=== PATIENT | male | born 1995 | race African-American/Black ===

== ENCOUNTER 2020-01-20 22:26 | Emergency (ER) | payer BC ==
[~2020-01-20] VITALS: Ht 193 cm; Wt 113.4 kg
[2020-01-21 01:03] VITALS: BP 106/67
== END 2020-01-21 01:03 | disposition home or self-care (01) ==
LOC: ER 22:26
DX: J02.9 Acute pharyngitis, unspecified (principal); R05 Cough; F12.90 Cannabis use, unspecified, uncomplicated

== ENCOUNTER 2020-01-23 11:16 | Emergency (ER) | payer BC ==
[~2020-01-23] VITALS: Ht 193 cm; Wt 113.4 kg
[2020-01-23] MEDS ORDERED: ONDANSETRON HCL4 M2 PO (11:49)
[2020-01-23] MEDS ORDERED: PROMETH-CODEIN 65 ML PO (11:49)
== END 2020-01-23 12:02 | disposition home or self-care (01) ==
LOC: ER 11:16
DX: R50.9 Fever, unspecified (principal); R05 Cough; R11.2 Nausea with vomiting, unspecified; Z20.828 Contact with and (suspected) exposure to other viral communicable diseases

== ENCOUNTER 2020-03-14 19:45 | Emergency (ER) | payer BC ==
[~2020-03-14] VITALS: Ht 193 cm; Wt 117.9 kg
[~2020-03-14 19:45] MED LIST: ONDANSETRON HCL4 M2 PO; PROMETH-CODEIN 65 ML PO
[2020-03-14 20:49] LABS: ABSOLUTE NEUTROPHILS 1.5 thou/uL (1.4-8.2); BASOPHILS 0.7 % (0.0-2.0); EOSINOPHILS 1.5 % (0.0-3.0); HEMATOCRIT 43.4 % (42.0-52.0); HEMOGLOBIN 14.8 gm/dL (14.0-18.0); LYMPHOCYTES 55.6 % (24.0-44.0); MCH 30.9 pg (26.0-34.0); MCV 90.8 fL (80.0-100.0); MONOCYTES 8.3 % (1.0-8.0); PLATELET COUNT 227 thou/uL (150-400); POLYS 33.9 % (36.0-66.0); RBC 4.77 mil/uL (4.50-6.00); WBC 4.3 thou/uL (4.0-11.0)
[2020-03-14 21:07] LABS: CALCIUM 8.7 mg/dL (8.5-10.1); CREATININE 1.2 mg/dL (0.7-1.3); POTASSIUM 3.9 mmol/L (3.5-5.1)
[2020-03-14 21:14] LABS: ALBUMIN 3.8 g/dL (3.4-5.0); TOTAL BILIRUBIN 0.9 mg/dL (0.2-1.0); TOTAL PROTEIN 7.2 g/dL (6.4-8.2)
[2020-03-14] MEDS ORDERED: ONDANSETRON HCL4 M2 PO ×2 (21:17→21:22)
[2020-03-14 21:57] VITALS: BP 110/73
[2020-03-14 22:00] LABS: URINE BILIRUBIN NEGATIVE (Negative); URINE BLOOD NEGATIVE (Negative); URINE CLARITY CLEAR; URINE COLOR YELLOW; URINE GLUCOSE-RANDOM* NEGATIVE (Negative); URINE KETONES NEGATIVE (Negative); URINE LEUKOCYTES-REFLEX NEGATIVE (Negative); URINE NITRITE-REFLEX NEGATIVE (Negative); URINE PROTEIN (DIPSTICK) NEGATIVE (Negative); URINE SPECIFIC GRAVITY >= 1.030 (1.005-1.035); URINE UROBILINOGEN 0.2 E.U./dl (0.2-1.0)
== END 2020-03-14 21:58 | disposition home or self-care (01) ==
LOC: ER 19:45
PROVIDERS: Physician Assistant
DX: R11.2 Nausea with vomiting, unspecified (principal); R10.9 Unspecified abdominal pain

== ENCOUNTER → 2021-06-03 | Emergency (ER) | payer BC ==
[~2021-06-03] VITALS: Ht 193 cm; Wt 113.4 kg
[~2021-06-03] MED LIST changes: +AMOXICILLIN500 M1 PO; +MEDROLDOSEPACK PO; +TESSALON PERLE100 MG PO
[2021-06-03 18:07] VITALS: BP 130/84
== END ==
LOC: ER 17:43
DX: H66.92 Otitis media, unspecified, left ear (principal); J02.9 Acute pharyngitis, unspecified